=== PATIENT | male | born 1940 | race Caucasian/White ===

== ENCOUNTER 2016-07-30 08:00 | Emergency (ER) | payer MEDICARE ==
[~2016-07-30] VITALS: Ht 182.9 cm; Wt 93.0 kg
[2016-07-30 08:04] VITALS: BP 154/80
[2016-07-30] MEDS ORDERED: AMLO10TA2 PO (08:17)
== END 2016-07-30 09:33 | disposition home or self-care (01) ==
LOC: ED 09:27
DX: S63.512A Sprain of carpal joint of left wrist, initial encounter (principal); I10 Essential (primary) hypertension; W18.30XA Fall on same level, unspecified, initial encounter; Y93.89 Activity, other specified; Y99.8 Other external cause status; Y92.009 Unspecified place in unspecified non-institutional (private) residence as the place of occurrence of the external cause
CPT/HCPCS: 29125

== ENCOUNTER 2017-03-01 12:54 | Inpatient (IN) | payer MEDICARE ==
[~2017-03-01] VITALS: Ht 182.9 cm; Wt 86.1 kg
[2017-03-01] VITALS (9 sets, daily range): BP systolic 127–185; BP diastolic 69–95
[~2017-03-01 12:54] MED LIST: AMLO10TA2 PO
[2017-03-01 13:26] LABS: BASOPHILS # (AUTO) 0.03 x10^3/uL (0-0.1); BASOPHILS % (AUTO) 0 % (0-1); EOSINOPHILS # (AUTO) 0.13 x10^3/uL (0-0.4); EOSINOPHILS % (AUTO) 1 % (1-7); LYMPHOCYTES # (AUTO) 1.76 x10^3/uL (1-3.4); LYMPHOCYTES % (AUTO) 18 % (22-44); MD NO; MEAN CORPUSCULAR HEMOGLOBIN 29.9 pg (27.5-34.5); MEAN CORPUSCULAR HGB CONC 33.3 g/dL (33.2-36.2); MEAN CORPUSCULAR VOLUME 89.7 fL (81-97); MEAN PLATELET VOLUME 8.9 fL (7.4-10.4); MONOCYTES # (AUTO) 0.63 x10^3/uL (0.2-0.8); MONOCYTES % (AUTO) 7 % (2-9); NEUTROPHILS % (AUTO) 74 % (42-75); PLATELET COUNT 211 x10^3/uL (130-400); RED BLOOD COUNT 5.79 x10^6/uL (4.38-5.82); RED CELL DISTRIBUTION WIDTH 14.2 % (9.4-14.8)
[2017-03-01] MEDS ORDERED: ASPIRIN 81 MG TABLET CHEW PO ONE (13:30)
[2017-03-01] MEDS ORDERED: SODIUM CHLORIDE FLUSH 10ML SYR IVF ONE (13:30)
[2017-03-01 13:38] LABS: ALANINE AMINOTRANSFERASE 21 U/L (12-78); ANION GAP 10 mmol/L (5-15); CALCIUM 8.4 mg/dL (8.5-10.1); CHLORIDE 109 mmol/L (98-107); CREATININE 1.04 mg/dL (0.7-1.3)
[2017-03-01 13:42] LABS: ALKALINE PHOSPHATASE 59 U/L (45-117); BILIRUBIN,TOTAL 0.4 mg/dL (0.2-1.0); TOTAL PROTEIN 7.4 g/dL (6.4-8.2)
[2017-03-01] MEDS ORDERED: NITROGLYCERIN SINGLE TAB 0.4 MG SL ONE (13:44)
[2017-03-01] MEDS ORDERED: ASPIRIN 81 MG TABLET CHEW ONE (13:44)
[2017-03-01] MEDS: NITROGLYCERIN SINGLE TAB 0.4 MG SL PRN ×2 (13:47→14:10)
[2017-03-01] MEDS ORDERED: NS + 20MEQ KCL 1,000 ML IV SCH (14:39)
[2017-03-01] MEDS ORDERED: METOPROLOL 1 MG/ML, 5ML ONE ×2 (14:41→14:52)
[2017-03-01] MEDS: METOPROLOL 1 MG/ML, 5ML IVPush PRN ×2 (14:43→14:53)
[2017-03-01] MEDS ORDERED: POLYETHYLENE GLYCOL 17 GM PACKET PO PRN (15:00)
[2017-03-01] MEDS ORDERED: BISACODYL 10 MG SUPP PR PRN (15:00)
[2017-03-01] MEDS ORDERED: morphine SULFATE 10 MG/ML, 1ML IVPush PRN (15:00)
[2017-03-01] MEDS ORDERED: ONDANSETRON 2MG/ML, 2ML IVPush PRN (15:00)
[2017-03-01] MEDS ORDERED: ENALAPRILAT 1.25 MG/ML, 2ML IVPush PRN (15:00)
[2017-03-01] MEDS ORDERED: ACETAMINOPHEN 325 MG TABLET PO PRN (15:00)
[2017-03-01] MEDS ORDERED: DOCUSATE 100 MG CAPSULE PO PRN (15:00)
[2017-03-01] MEDS ORDERED: ENOXAPARIN 100 MG/ML SQ SCH (17:00)
[2017-03-01] MEDS: NITROGLYCERIN 0.4 MG BOTTLE (25 TABS) SL PRN ×4 (20:30→22:54)
[2017-03-01] MEDS ORDERED: NITROGLYCERIN 0.4 MG/SPRAY SL PRN (21:00)
[2017-03-01] MEDS ORDERED: NITROGLYCERIN 0.4 MG BOTTLE (25 TABS) SL PRN (21:00)
[2017-03-02 01:47] VITALS: BP 145/76
[2017-03-02] MEDS ORDERED: HEPARIN 5,000 UNITS/ML, 1ML IV ONE (05:00)
[2017-03-02] MEDS ORDERED: HEPARIN 5,000 UNITS/ML, 1ML IV PRN (05:00)
[2017-03-02] MEDS ORDERED: HEPARIN 25,000 UNITS/500ML PMX 500 ML IV PRN (05:00)
[2017-03-02 05:33] LABS: BASOPHILS # (AUTO) 0.03 x10^3/uL (0-0.1); BASOPHILS % (AUTO) 0 % (0-1); EOSINOPHILS # (AUTO) 0.13 x10^3/uL (0-0.4); EOSINOPHILS % (AUTO) 1 % (1-7); LYMPHOCYTES # (AUTO) 1.94 x10^3/uL (1-3.4); LYMPHOCYTES % (AUTO) 18 % (22-44); MD NO; MEAN CORPUSCULAR HEMOGLOBIN 30.5 pg (27.5-34.5); MEAN CORPUSCULAR HGB CONC 34.1 g/dL (33.2-36.2); MEAN CORPUSCULAR VOLUME 89.6 fL (81-97); MEAN PLATELET VOLUME 8.8 fL (7.4-10.4); MONOCYTES # (AUTO) 0.88 x10^3/uL (0.2-0.8); MONOCYTES % (AUTO) 8 % (2-9); NEUTROPHILS # (AUTO) 8.08 x10^3/uL (1.8-6.8); NEUTROPHILS % (AUTO) 73 % (42-75); PLATELET COUNT 183 x10^3/uL (130-400); RED BLOOD COUNT 5.28 x10^6/uL (4.38-5.82); RED CELL DISTRIBUTION WIDTH 14.2 % (9.4-14.8)
[2017-03-02 05:43] LABS: CHLORIDE 109 mmol/L (98-107)
[2017-03-02 05:58] LABS: ANION GAP 8 mmol/L (5-15); CALCIUM 8.5 mg/dL (8.5-10.1); CHOL/HDL RATIO 4.9; CHOLESTEROL, TOTAL 187 mg/dL (140-239); CREATININE 0.72 mg/dL (0.7-1.3); HDL CHOL % 20 % (26-37); HDL CHOLESTEROL (DIRECT) 38 mg/dL (40-60); LDL CHOLESTEROL,CALCULATED 123 mg/dL (54-169); LDL/HDL RATIO 3.2 (0.5-3.0); TRIGLYCERIDES 131 mg/dL (50-200); VLDL CHOLESTEROL 26 mg/dL (0-25)
[2017-03-02] MEDS ORDERED: ASPIRIN 325 MG TABLET EC PO SCH (06:00)
[2017-03-02 06:40] LABS: HEMOGLOBIN A1C 5.4 % (4.2-6.3)
[2017-03-02 07:56] VITALS: BP 158/81
[2017-03-02] MEDS: ENALAPRIL 5MG TABLET PO SCH ×2 (09:00→21:00)
[2017-03-02] MEDS: AMLODIPINE 5 MG TABLET PO SCH (09:33)
[2017-03-02] MEDS ORDERED: BIVALIRUDIN 250 MG ONE (12:11)
[2017-03-02] MEDS ORDERED: TICAGRELOR 90 MG TABLET ONE (12:11)
[2017-03-02] MEDS ORDERED: LIDOCAINE 2%, 20ML ONE (12:11)
[2017-03-02] MEDS ORDERED: VERAPAMIL 2.5 MG/ML, 2ML ONE (12:11)
[2017-03-02] MEDS ORDERED: HEPARIN 1,000 UNITS/ML, 10ML ONE (12:11)
[2017-03-02] MEDS ORDERED: FENTANYL PF 100 MCG/2ML ONE ×2 (12:11→13:05)
[2017-03-02] MEDS ORDERED: MIDAZOLAM 1 MG/ML, 2ML ONE (12:14)
[2017-03-02] MEDS ORDERED: BIVALIRUDIN 250 MG in DEXTROSE 5% 50 ML IV SCH (13:14)
[2017-03-02] MEDS: SODIUM CHLORIDE 0.9% 1,000 ML IV SCH ×2 (13:14→21:14)
[2017-03-02 13:31] VITALS: BP 146/70
[2017-03-02 18:30] VITALS: BP 140/65
[2017-03-02] MEDS: ATORVASTATIN 40 MG TABLET PO SCH ×2 (21:00→21:58)
[2017-03-02] MEDS: TICAGRELOR 90 MG TABLET PO SCH (21:58)
[2017-03-03 03:50] VITALS: BP 122/71
[2017-03-03] MEDS: SODIUM CHLORIDE 0.9% 1,000 ML IV SCH (05:14)
[2017-03-03] MEDS ORDERED: ASPIRIN 325 MG TABLET EC PO SCH (06:00)
[2017-03-03 06:23] LABS: ALBUMIN 3.4 g/dL (3.4-5.0); ANION GAP 10 mmol/L (5-15); CALCIUM 8.5 mg/dL (8.5-10.1); CHLORIDE 106 mmol/L (98-107); CREATININE 0.82 mg/dL (0.7-1.3)
[2017-03-03 07:40] VITALS: BP 116/71
[2017-03-03] MEDS: ENALAPRIL 5MG TABLET PO SCH (09:00)
[2017-03-03] MEDS: TICAGRELOR 90 MG TABLET PO SCH (09:52)
[2017-03-03] MEDS: AMLODIPINE 5 MG TABLET PO SCH (09:54)
[2017-03-03] MEDS ORDERED: ASPI-650 PO (10:00)
[2017-03-03] MEDS ORDERED: ENAL5TAB PO (10:00)
[2017-03-03] MEDS ORDERED: METOPROLOL SUCCINATE 25 MG TAB.ER.24H PO SCH (10:00)
[2017-03-03] MEDS ORDERED: ATOR40TA78 PO (10:00)
[2017-03-03] MEDS ORDERED: METO25TA91 PO (10:00)
[2017-03-03] MEDS ORDERED: ACET325T14 PO (10:00)
[2017-03-03] MEDS ORDERED: NITR0.4T SL (10:00)
[2017-03-03] MEDS ORDERED: TICA90TA PO (10:00)
== END 2017-03-03 11:24 | disposition home or self-care (01) | DRG 246 ==
LOC: ED 13:51 → EDIP 13:52 → ED 14:15 → 5SO 15:20 → DCLOUNGE 03-03 11:04
PROVIDERS: ADMIT Hospitalist; ATTEND Hospitalist
PROC: 027034Z Dilation of Coronary Artery, One Artery with Drug-eluting Intraluminal Device, Percutaneous Approach (ICD-10-PCS; principal; 2017-03-02)
PROC: 03HY32Z Insertion of Monitoring Device into Upper Artery, Percutaneous Approach (ICD-10-PCS; 2017-03-02)
PROC: 4A023N7 Measurement of Cardiac Sampling and Pressure, Left Heart, Percutaneous Approach (ICD-10-PCS; 2017-03-02)
PROC: B2111ZZ Fluoroscopy of Multiple Coronary Arteries using Low Osmolar Contrast (ICD-10-PCS; 2017-03-02)
PROC: B2151ZZ Fluoroscopy of Left Heart using Low Osmolar Contrast (ICD-10-PCS; 2017-03-02)
DX: I21.4 Non-ST elevation (NSTEMI) myocardial infarction (principal); I50.31 Acute diastolic (congestive) heart failure; D75.1 Secondary polycythemia; R73.9 Hyperglycemia, unspecified; I11.0 Hypertensive heart disease with heart failure; D72.829 Elevated white blood cell count, unspecified; E78.5 Hyperlipidemia, unspecified; M48.00 Spinal stenosis, site unspecified; I25.10 Atherosclerotic heart disease of native coronary artery without angina pectoris; Z79.82 Long term (current) use of aspirin; Z87.891 Personal history of nicotine dependence; Z90.89 Acquired absence of other organs
CPT/HCPCS: 36415; 71045; 80048; 80053; 80061; 82040; 83036; 84484; 85014; 85018; 85025; 85520; 93005; 93306; 93458; 96374; 99156; 99157; C1894; C9600; J0583; J1644; J1650; J2250; J3010; J3480; J3490; C1769; C1874; C1887; Q9967

== ENCOUNTER → 2017-05-24 | Outpatient (CLI) | payer MEDICARE ==
[~2017-05-24] MED LIST changes: +ACET325T14 PO; +ASPI-650 PO; +ATOR40TA78 PO; +ENAL5TAB PO; +METO25TA91 PO; +NITR0.4T SL; +TICA90TA PO
[2017-05-24 12:51] LABS: CHLORIDE 108 mmol/L (98-107)
[2017-05-24 13:00] LABS: ALANINE AMINOTRANSFERASE 30 U/L (12-78); ALBUMIN 4.1 g/dL (3.4-5.0); ALKALINE PHOSPHATASE 49 U/L (45-117); ANION GAP 10 mmol/L (5-15); BILIRUBIN,TOTAL 1.2 mg/dL (0.2-1.0); CALCIUM 9.2 mg/dL (8.5-10.1); CHOL/HDL RATIO 2.6; CHOLESTEROL, TOTAL 118 mg/dL (140-239); CREATININE 1.06 mg/dL (0.7-1.3); HDL CHOL % 38 % (26-37); HDL CHOLESTEROL (DIRECT) 45 mg/dL (40-60); LDL CHOLESTEROL,CALCULATED 60 mg/dL (54-169); LDL/HDL RATIO 1.3 (0.5-3.0); TOTAL PROTEIN 7.3 g/dL (6.4-8.2); TRIGLYCERIDES 66 mg/dL (50-200); VLDL CHOLESTEROL 13 mg/dL (0-25)
== END ==
LOC: CFH 07:35
PROVIDERS: ATTEND Internal Medicine Cardiovascular Disease
DX: E78.2 Mixed hyperlipidemia (principal)
CPT/HCPCS: 36415; 80053; 80061

== ENCOUNTER → 2019-04-10 | Outpatient (CLI) | payer MEDICARE ==
[~2019-04-10] MED LIST changes: -AMLO10TA2 PO; +AMLO10TA8 PO; -NITR0.4T SL; +NITR0.4T41 SL
[2019-04-10 13:36] LABS: ALBUMIN 3.8 g/dL (3.4-5.0); CHLORIDE 109 mmol/L (98-107)
[2019-04-10 13:42] LABS: ALANINE AMINOTRANSFERASE 22 U/L (12-78); ALKALINE PHOSPHATASE 51 U/L (45-117); ANION GAP 5 mmol/L (5-15); BILIRUBIN,TOTAL 0.8 mg/dL (0.2-1.0); CHOL/HDL RATIO 2.7; CHOLESTEROL, TOTAL 118 mg/dL (140-239); CREATININE 0.98 mg/dL (0.7-1.3); HDL CHOL % 37 % (26-37); HDL CHOLESTEROL (DIRECT) 44 mg/dL (40-60); LDL CHOLESTEROL,CALCULATED 61 mg/dL (54-169); LDL/HDL RATIO 1.4 (0.5-3.0); TOTAL PROTEIN 7.1 g/dL (6.4-8.2); TRIGLYCERIDES 67 mg/dL (50-200); VLDL CHOLESTEROL 13 mg/dL (0-25)
== END | disposition home or self-care (01) ==
LOC: CFH 08:13
PROVIDERS: ATTEND Internal Medicine Cardiovascular Disease
DX: E78.2 Mixed hyperlipidemia (principal)
CPT/HCPCS: 36415; 80053; 80061

== ENCOUNTER 2019-10-18 13:57 | Emergency (ER) | payer MEDICARE ==
[~2019-10-18] VITALS: Ht 182.9 cm; Wt 97.0 kg
[2019-10-18] MEDS ORDERED: ASPIRIN 81 MG TABLET CHEW ONE (14:20)
--- NOTE | 2019-10-18 14:26 | NUR ---
PIV PLACED, LABS DRAWN AND SENT TO LAB WITH LAB STICKERS. PT PLACED ON ALL MONITORING. CALL LIGHT IN REACH. MD AT BEDSIDE FOR ASSESSMENT.
[2019-10-18] MEDS ORDERED: ASPIRIN 81 MG TABLET CHEW PO ONE (14:30)
[2019-10-18 14:34] LABS: BASOPHILS # (AUTO) 0.02 x10^3/uL (0-0.1); BASOPHILS % (AUTO) 0 % (0-1); EOSINOPHILS # (AUTO) 0.21 x10^3/uL (0-0.4); EOSINOPHILS % (AUTO) 3 % (1-7); LYMPHOCYTES # (AUTO) 1.77 x10^3/uL (1-3.4); LYMPHOCYTES % (AUTO) 23 % (22-44); MD NO; MEAN CORPUSCULAR HEMOGLOBIN 30.4 pg (27.5-34.5); MEAN CORPUSCULAR HGB CONC 33.4 g/dL (33.2-36.2); MEAN CORPUSCULAR VOLUME 91.1 fL (81-97); MEAN PLATELET VOLUME 8.9 fL (7.4-10.4); MONOCYTES # (AUTO) 0.62 x10^3/uL (0.2-0.8); MONOCYTES % (AUTO) 8 % (2-9); NEUTROPHILS # (AUTO) 5.17 x10^3/uL (1.8-6.8); NEUTROPHILS % (AUTO) 66 % (42-75); PLATELET COUNT 192 x10^3/uL (130-400); RED BLOOD COUNT 5.51 x10^6/uL (4.38-5.82); RED CELL DISTRIBUTION WIDTH 14.2 % (9.4-14.8)
[2019-10-18 14:39] LABS: ALANINE AMINOTRANSFERASE 28 U/L (12-78); ALBUMIN 3.8 g/dL (3.4-5.0); ANION GAP 8 mmol/L (5-15); CALCIUM 9.1 mg/dL (8.5-10.1); CHLORIDE 109 mmol/L (98-107)
[2019-10-18 14:44] LABS: ALKALINE PHOSPHATASE 61 U/L (45-117); BILIRUBIN,TOTAL 0.6 mg/dL (0.2-1.0); CREATININE 1.07 mg/dL (0.7-1.3); TOTAL PROTEIN 7.2 g/dL (6.4-8.2); TROPONIN I < 0.015 ng/mL (0.000-0.045)
--- NOTE | 2019-10-18 15:22 | NUR ---
ALL RESULTS ARE BACK AT THIS TIME. CHART UP FOR RECHECK.
[2019-10-18 15:28] VITALS: BP 119/67
--- NOTE | 2019-10-18 15:50 | NUR ---
D-DIMER RESULTS BACK AT THIS TIME. CHART UP FOR RECHECK.
--- NOTE | 2019-10-18 15:51 | NUR ---
NEW ORDER RECEIVED FOR CTA
[2019-10-18] MEDS ORDERED: OMNIPAQUE 350 MG/ML, 100ML BOTTLE ONE (16:35)
[2019-10-18 17:52] LABS: TROPONIN I < 0.015 ng/mL (0.000-0.045)
--- NOTE | 2019-10-18 18:10 | NUR ---
ALL RESULTS ARE BACK AT THIS TIME. CHART UP FOR RECHECK.
== END 2019-10-18 18:56 | disposition home or self-care (01) ==
LOC: ED 14:41
DX: R07.89 Other chest pain (principal); I10 Essential (primary) hypertension; I25.2 Old myocardial infarction; I25.10 Atherosclerotic heart disease of native coronary artery without angina pectoris; E78.5 Hyperlipidemia, unspecified
CPT/HCPCS: 36415; 71045; 71275; 80053; 84484; 85025; 85379; 93005; 99285; Q9967

== ENCOUNTER → 2019-10-31 | Outpatient (CLI) | payer MEDICARE ==
[~2019-10-31] MED LIST changes: -ENAL5TAB PO; +ENAL5TAB10 PO; +REGADENOSON 0.4 MG/5 ML SYRINGE ONE
== END | disposition home or self-care (01) ==
LOC: CFH 08:37
PROVIDERS: ATTEND Internal Medicine Cardiovascular Disease
DX: I25.10 Atherosclerotic heart disease of native coronary artery without angina pectoris (principal); I10 Essential (primary) hypertension
CPT/HCPCS: 78452; 93017; A9502; J2785

== ENCOUNTER → 2020-06-12 | Outpatient (CLI) | payer MEDICARE ==
[~2020-06-12] MED LIST changes: +AMLO-211 PO; -AMLO10TA8 PO; -ASPI-650 PO; +ASPI325T20 PO; -REGADENOSON 0.4 MG/5 ML SYRINGE ONE
== END | disposition home or self-care (01) ==
LOC: CVU 07:25
PROVIDERS: ATTEND Internal Medicine Cardiovascular Disease
DX: I34.0 Nonrheumatic mitral (valve) insufficiency (principal); I25.10 Atherosclerotic heart disease of native coronary artery without angina pectoris; I25.2 Old myocardial infarction; E78.5 Hyperlipidemia, unspecified; I48.91 Unspecified atrial fibrillation; I11.9 Hypertensive heart disease without heart failure; Z79.01 Long term (current) use of anticoagulants
CPT/HCPCS: 93306